=== PATIENT | male | born 1965 | race Caucasian/White ===

== ENCOUNTER 2020-05-26 07:55 | Outpatient (CLI) | payer OTHER | END 2020-05-26 08:10 | disposition home or self-care (01) | LOC: TOM 07:55 | PROVIDERS: ATTEND Orthopaedic Surgery | DX: M79.671 Pain in right foot (principal) ==

== ENCOUNTER → 2020-06-02 | Outpatient (CLI) | payer OTHER | END | disposition home or self-care (01) | LOC: RAD 07:25 | PROVIDERS: ATTEND Orthopaedic Surgery | DX: S92.224A Nondisplaced fracture of lateral cuneiform of right foot, initial encounter for closed fracture (principal); S92.334A Nondisplaced fracture of third metatarsal bone, right foot, initial encounter for closed fracture ==

== ENCOUNTER 2020-07-01 08:51 | Outpatient (CLI) | payer OTHER | END 2020-07-01 08:56 | disposition home or self-care (01) | LOC: RAD 08:51 | PROVIDERS: ATTEND Orthopaedic Surgery | DX: S92.224D Nondisplaced fracture of lateral cuneiform of right foot, subsequent encounter for fracture with routine healing (principal); S93.324D Dislocation of tarsometatarsal joint of right foot, subsequent encounter; S92.334D Nondisplaced fracture of third metatarsal bone, right foot, subsequent encounter for fracture with routine healing ==